=== PATIENT | female | born 1940 | race Caucasian/White ===

== ENCOUNTER → 2017-01-28 | Outpatient (CLI) | payer OTHER, MEDICAID ==
[~2017-01-28] MED LIST: ASPI1CPM9; HYDR-3138 PO; LABE1POW; [UNRECOGNIZED DRUG - OTHER]
== END | disposition home or self-care (01) ==
LOC: CFH 07:28
PROVIDERS: ATTEND Nurse Practitioner
DX: M48.02 Spinal stenosis, cervical region (principal); M50.23 Other cervical disc displacement, cervicothoracic region; M50.33 Other cervical disc degeneration, cervicothoracic region; M25.78 Osteophyte, vertebrae
CPT/HCPCS: 72141

== ENCOUNTER → 2018-01-06 | Outpatient (CLI) | payer OTHER, MEDICAID ==
[~2018-01-06] MED LIST changes: -HYDR-3138 PO; +HYDR-3237 PO; +LIDOCAINE-MPF 1%, 2ML ONE
== END | disposition home or self-care (01) ==
LOC: RAD 09:27
PROVIDERS: ATTEND Otolaryngology
DX: D11.0 Benign neoplasm of parotid gland (principal); K11.8 Other diseases of salivary glands
CPT/HCPCS: 76536; 76942; 88173; J3490

== ENCOUNTER 2018-03-07 09:42 | Emergency (ER) | payer OTHER ==
[~2018-03-07] VITALS: Ht 167.6 cm; Wt 71.7 kg
[~2018-03-07 09:42] MED LIST changes: -LIDOCAINE-MPF 1%, 2ML ONE
[2018-03-07] MEDS ORDERED: ALBUTEROL SULFATE 2.5 MG/3 ML NPPB ONE (10:00)
[2018-03-07] MEDS ORDERED: AZITHROMYCIN 500 MG TABLET PO ONE (10:00)
[2018-03-07] MEDS ORDERED: AZITHROMYCIN 500 MG TABLET ONE (10:04)
[2018-03-07] MEDS ORDERED: ALBUTEROL SULFATE 2.5MG/0.5ML ONE (10:06)
[2018-03-07 11:57] VITALS: BP 188/64
== END 2018-03-07 11:59 | disposition home or self-care (01) ==
LOC: ED 11:57
DX: J06.9 Acute upper respiratory infection, unspecified (principal); J96.01 Acute respiratory failure with hypoxia; I10 Essential (primary) hypertension; E11.9 Type 2 diabetes mellitus without complications; J44.9 Chronic obstructive pulmonary disease, unspecified; E78.5 Hyperlipidemia, unspecified; M79.1 Myalgia; Z86.73 Personal history of transient ischemic attack (TIA), and cerebral infarction without residual deficits
CPT/HCPCS: 71045; 94640; 99283; J7512; J7613

== ENCOUNTER 2019-08-11 10:30 | Day surgery (SDC) | payer MEDICARE ==
[~2019-08-11] VITALS: Ht 166.4 cm; Wt 62.1 kg
[2019-08-11] MEDS ORDERED: LACTATED RINGERS 1,000 ML IV SCH (11:07)
[2019-08-11] MEDS ORDERED: HYDR25TA6 PO (11:28)
[2019-08-11] MEDS ORDERED: DILT240C47 PO (11:28)
[2019-08-11] MEDS ORDERED: IRBE300T8 PO (11:28)
[2019-08-11] MEDS ORDERED: LEVO112T4 PO (11:28)
[2019-08-11] MEDS ORDERED: MECL12.581 PO (11:28)
[2019-08-11] MEDS ORDERED: IPRA4AER INH (11:28)
[2019-08-11] MEDS ORDERED: CALC1CAP8 PO (11:28)
[2019-08-11] MEDS ORDERED: LABE100T6 PO (11:28)
[2019-08-11] MEDS ORDERED: CLOP75TA PO (11:28)
[2019-08-11] MEDS ORDERED: SIMV40TA20 PO (11:28)
[2019-08-11] MEDS ORDERED: CYAN100014 PO (11:28)
[2019-08-11] MEDS ORDERED: IPRA3AMP30 INH (11:28)
[2019-08-11] MEDS ORDERED: POTA10TA6 PO (11:28)
[2019-08-11 11:29] VITALS: BP 147/74
[2019-08-11] MEDS ORDERED: FENTANYL PF 100 MCG/2ML IV PRN (13:00)
[2019-08-11] MEDS ORDERED: LABETALOL 5MG/ML, 20ML IV PRN (13:00)
[2019-08-11] MEDS ORDERED: hydrALAzine 20 MG/ML, 1ML IV PRN (13:00)
[2019-08-11] MEDS ORDERED: HALOPERIDOL 5 MG/ML IV PRN (13:00)
[2019-08-11] MEDS ORDERED: PROMETHAZINE 25 MG/ML, 1ML IV PRN (13:00)
[2019-08-11] MEDS ORDERED: PROPOFOL 50 ML ONE (14:08)
== END 2019-08-11 15:10 | disposition home or self-care (01) ==
LOC: OUT 10:30
PROVIDERS: ATTEND Internal Medicine
DX: K31.89 Other diseases of stomach and duodenum (principal); K59.00 Constipation, unspecified; K62.5 Hemorrhage of anus and rectum; A63.0 Anogenital (venereal) warts; E03.9 Hypothyroidism, unspecified; E78.5 Hyperlipidemia, unspecified; J45.909 Unspecified asthma, uncomplicated; I10 Essential (primary) hypertension; F17.210 Nicotine dependence, cigarettes, uncomplicated; Z87.01 Personal history of pneumonia (recurrent); Z87.09 Personal history of other diseases of the respiratory system; Z86.79 Personal history of other diseases of the circulatory system; Z86.73 Personal history of transient ischemic attack (TIA), and cerebral infarction without residual deficits; Z88.5 Allergy status to narcotic agent; Z91.048 Other nonmedicinal substance allergy status; Z79.899 Other long term (current) drug therapy
CPT/HCPCS: 43237; 43254; 88305; 93005; A4648; J2704; J7120